=== PATIENT | female | born 1970 | race Caucasian/White ===

== ENCOUNTER 2018-01-10 11:46 | Emergency (ER) | payer OTHER ==
--- OUTSIDE RECORDS SUMMARY | 2018-01-10 12:00 | XMS REPORT ---
:1970 External Reference #:[id number] Author Organization [facility] Address [address] [place] [address] Phone [phone] Care Team Providers Name Role Phone Radu Guillen M.D. Primary Care Physician Unavailable Payers Type Date Identification Numbers Payment Provider Subscriber Commercial Policy Number: [id number] [employer] [place] Estrellita Marvin PayID: [id number] [address] [place] [id number] Problems Date Description Provider Status Onset: Type 2 diabetes mellitus Active Note: 2013 Onset: Essential hypertension Active Onset: 01/28/2016 Tear film insufficiency Archie Pal M.D. Active Onset: 01/28/2016 Nuclear senile cataract Archie Pal M.D. 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 Active Family History Date Family Member(s) Problem(s) Comments Father Diabetes Mother Diabetes Social History Type Date Description Comments Marital Status Single Occupation case aide Work Status Full-Time Employment ETOH Use Denies alcohol use Smoking Patient has never smoked Recreational Drug Use Denies Drug Use Daily Caffeine Does Not Consume Caffeine Allergies, Adverse Reactions, Alerts Date Description Reaction Status Severity Comments 01/28/2016 Aspirin active 01/28/2016 Metformin active Medications Medication Date Status Form Strength Qnty SIG Indications Ordering Provider Valsartan-Hydr Active Tablets 320-25mg Unknown ochlorothiazid /0000 e Metronidazole Active Tablets 250mg take 1 take Unknown /0000 every 6 hours Tanzeum Active Pen 50mg Unknown /0000 Amlodipine 00 Active Tablets 10mg take 1 tablet Unknown Besylate /0000 by mouth once daily Atenolol 00 Active Tablets 50mg take 1 tablet Unknown /0000 by mouth once daily Basaglar Active Solution 100Unit/M Inject 80 Units Unknown Kwikpen /0000 Pen-Injec L Once Daily t Lantus 00 Hx Solution 100Unit/M Inject 80 Units Unknown Solostar /0000 Pen-Injec L Subcutaneously - t Once Daily 12/18 Glyburide 00 Hx Tablets 5mg Unknown /0000 - 12/18 Results Description No Information Procedures Date CPT Code Description Status 01/28/2016 42706 Scanning Computerized Opthalmic Diagnostic Posterior Completed Seg Retina 01/28/2016 21839 New Patient Comprehensive Exam Completed Plan of Care 12/19/2017 - Archie Pal M.D.E11.9 Type 2 diabetes mellitus without complicationsComments:Smoking can increase the risk of developing or worsening any eye related disease, as well as affect your overall health. If you are a smoker, we strongly recommend that you quit.If you are not a smoker, we strongly recommend that you do not start. You have diabetes. I do not detect any changes in both of your retinas from diabetes at this time. Proper control of your diabetes is important for the health of your eyes. Changes in your eyes from diabetes can happen without symptoms, so it is important that you have your eyes examined.Follow up:1 Year Follow Up DFE You can expect to have your eyes dilated at your next visit. If Dr. Pal orders any additional testing, it may require extra time. We recommend that you bring sunglasses, as dilation drops often make you light sensitive until they wear off. We always recommend you bring someone to drive you home if you are uncomfortable driving with your eyes dilated. If you have any questions before your next visit, feel free to call our office at .H25.13 Age-related nuclear cataract, bilateralComments:You have been diagnosed with cataracts. If you are happy with your vision as it is now, then we willsee you at your next scheduled appointment. If you feel like your vision is getting worse before your scheduled appointment, please call [facility] at [phone].H52.13 Myopia, bilateralComments:You have Myopia, or near sightedness.
[2018-01-10 12:15] VITALS: BP 154/97
--- NOTE | 2018-01-10 12:39 | ED ---
GI/ HPI - HPI Summary HPI Summary: 47 yr old female with the complaint of increased frequency of urination, dysuria , for three days. Denies fever, chills. Denies abdominal or back pain. No other complaints. - History of Current Complaint Chief Complaint: UCGU Time Seen by Provider: 01/10/18 12:26 Stated Complaint: URINARY Hx Last Menstrual Period: 5yrs Pain Intensity: 5 - Allergy/Home Medications Allergies/Adverse Reactions: Allergies Allergy/AdvReac Type Severity Reaction Status Date / Time metformin Allergy Abdominal Verified 01/10/18 12:11 Pain Home Medications: Home Medications Atenolol TAB* [Tenormin TAB* 50 MG] 50 mg PO DAILY 01/10/18 [History Confirmed 01/10/18] PMH/Surg Hx/FS Hx/Imm Hx Endocrine/Hematology History: Reports: Hx Diabetes - type 2 Cardiovascular History: Reports: Hx Hypertension Respiratory History: Denies: Hx Asthma, Hx Lung Cancer GI History: Reports: Hx Ulcer - gastric Denies: Hx Gall Bladder Disease, Hx Gastrointestinal Bleed Psychiatric History: Denies: Hx Depression, Hx Bipolar Disorder - Surgical History Surgery Procedure, Year, and Place: C section x 2 Infectious Disease History: No Infectious Disease History: Denies: Traveled Outside the [place] in Last 30 Days - Family History Known Family History: Positive: Hypertension, Diabetes - Social History Alcohol Use: None Substance Use Type: Reports: None Smoking Status (MU): Never Smoked Tobacco Review of Systems Constitutional: Negative Positive: dysuria, frequency All Other Systems Reviewed And Are Negative: Yes Physical Exam Triage Information Reviewed: Yes Vital Signs On Initial Exam: Initial Vitals Temp Pulse Resp BP Pulse Ox 100.0 F 83 17 154/97 97 01/10/18 12:08 01/10/18 12:08 01/10/18 12:08 01/10/18 12:08 01/10/18 12:08 Vital Signs Reviewed: Yes Appearance: Positive: Well-Appearing, No Pain Distress Skin: Positive: Warm, Skin Color Reflects Adequate Perfusion Head/Face: Positive: Normal Head/Face Inspection Eyes: Positive: EOMI ENT: Positive: Normal ENT inspection Neck: Positive: Nontender Respiratory/Lung Sounds: Positive: Clear to Auscultation, Breath Sounds Present Cardiovascular: Positive: RRR. Negative: Murmur Abdomen Description: Positive: Nontender Musculoskeletal: Positive: Strength/ROM Intact Neurological: Positive: Sensory/Motor Intact, Alert, Oriented to Person Place, Time, CN Intact II-III Psychiatric: Positive: Normal - Alonzo Coma Scale Best Eye Response: 4 - Spontaneous Best Motor Response: 6 - Obeys Commands Best Verbal Response: 5 - Oriented Coma Scale Total: 15 Diagnostics - Vital Signs Vital Signs Temp Pulse Resp BP Pulse Ox 01/10/18 12:08 100.0 F 83 17 154/97 97 - Laboratory Lab Statement: Any lab studies that have been ordered have been reviewed, and results considered in the medical decision making process. GIGU Course/Dx - Course Course Of Treatment: 47 yr old female with the complaint of dysuria, and positive urine dip. Rx with Cipro - Diagnoses Provider Diagnoses: UTI (urinary tract infection) Discharge - Sign-Out/Discharge Documenting (check all that apply): Patient Departure - Discharge Plan Condition: Good Disposition: HOME Prescriptions: Ciprofloxacin TAB* [Cipro 500 MG TAB*] 500 mg PO BID #6 tab Patient Education Materials: Urinary Tract Infection in Women (DC), Hypertension (ED) Referrals: Radu Guillen MD [Primary Care Provider] - 2 Days - Billing Disposition and Condition Condition: GOOD Disposition: Home
== END 2018-01-10 12:53 | disposition home or self-care (01) ==
LOC: UCCORT 11:46
DX: N39.0 Urinary tract infection, site not specified (principal); B96.20 Unspecified Escherichia coli [E. coli] as the cause of diseases classified elsewhere; Z88.8 Allergy status to other drugs, medicaments and biological substances; E11.9 Type 2 diabetes mellitus without complications; I10 Essential (primary) hypertension
CPT/HCPCS: 81003; 87077; 87086; 87186; 99212; G0463

== ENCOUNTER 2018-08-31 12:43 | Emergency (ER) | payer OTHER ==
[2018-08-31 13:49] VITALS: BP 117/82
[2018-08-31 14:19] LABS: Influenza A Molecular POSITIVE (Negative)
[2018-08-31] MEDS ORDERED: Acetaminophen TAB* 325 MG PO ONE (14:25)
--- NOTE | 2018-08-31 14:29 | UC ---
FLU HPI - HPI Summary HPI Summary: Pt c/o sudden onset of fever, chills, body aches, and cough X 2 days. Has known exposure to the flu. - History of Current Complaint Chief Complaint: UCRespiratory Stated Complaint: FEVER, CHILLS, COUGH Time Seen by Provider: 08/31/18 14:21 Hx Obtained From: Patient Hx Last Menstrual Period: 10 years ago ?: No Onset/Duration: Sudden Onset, Lasting Days, Still Present Severity Currently: Mild Severity Initially: Moderate Pain Intensity: 0 Associated Signs & Symptoms: Positive: Fever, Myalgia, Cough, Headache Related Hx: Possible Flu/Infectious Exposure - Risk Factors Influenza Risk Factors: Negative - Allergy/Home Medications Allergies/Adverse Reactions: Allergies Allergy/AdvReac Type Severity Reaction Status Date / Time metformin Allergy Abdominal Verified 08/31/18 13:44 Pain PMH/Surg Hx/FS Hx/Imm Hx Previously Healthy: Yes Other History Of: Negative For: HIV - Surgical History Surgical History: Yes Surgery Procedure, Year, and Place: C section x 2 - Family History Known Family History: Positive: Hypertension, Diabetes - Social History Occupation: Employed Full-time Lives: With Family Alcohol Use: None Substance Use Type: None Smoking Status (MU): Never Smoked Tobacco Have You Smoked in the Last Year: No - Immunization History Vaccination Up to Date: No Review of Systems All Other Systems Reviewed And Are Negative: Yes Constitutional: Positive: Fever, Chills, Fatigue Skin: Positive: Negative Eyes: Positive: Negative ENT: Positive: Sore Throat, Sinus Congestion Respiratory: Positive: Cough Cardiovascular: Positive: Negative Gastrointestinal: Positive: Negative Genitourinary: Positive: Negative Motor: Positive: Negative Neurovascular: Positive: Negative Musculoskeletal: Positive: Myalgia Neurological: Positive: Headache Psychological: Positive: Negative Is Patient Immunocompromised?: No Physical Exam Triage Information Reviewed: Yes Appearance: Ill-Appearing Vital Signs: Initial Vital Signs Temp 101.3 F 08/31/18 13:46 Pulse 101 08/31/18 13:46 Resp 8 08/31/18 13:46 BP 117/82 08/31/18 13:46 Pulse Ox 94 08/31/18 13:46 Vital Signs Reviewed: Yes Eye Exam: Normal ENT: Positive: Nasal congestion Dental Exam: Normal Neck exam: Normal Respiratory Exam: Normal Cardiovascular Exam: Normal Musculoskeletal Exam: Normal Neurological Exam: Normal Psychological Exam: Normal Skin Exam: Normal Flu Course/Dx - Differential Dx/Diagnosis Differential Diagnosis/HQI/PQRI: Influenza, Upper Respiratory Infection Provider Diagnosis: Influenza A Discharge - Sign-Out/Discharge Documenting (check all that apply): Patient Departure All imaging exams completed and their final reports reviewed: No Studies - Discharge Plan Condition: Stable Disposition: HOME Prescriptions: Oseltamivir CAP* [Tamiflu CAP*] 75 mg PO Q12H #10 cap Patient Education Materials: Influenza (ED) Referrals: Radu Guillen MD [Primary Care Provider] - If Needed - Billing Disposition and Condition Condition: STABLE Disposition: Home
== END 2018-08-31 14:34 | disposition home or self-care (01) ==
LOC: UCCORT 12:43
DX: J10.1 Influenza due to other identified influenza virus with other respiratory manifestations (principal); Z88.8 Allergy status to other drugs, medicaments and biological substances
CPT/HCPCS: 99212; A9270-GY; G0463